=== PATIENT | female | born 1980 ===

== ENCOUNTER 2019-08-07 11:57 | Outpatient (REF) | payer OTHER, SELFPAY ==
[2019-08-08 16:57] LABS: COVID-19 RT-PCR Result Not Detected ((See Note))
== END 2019-08-07 12:17 ==
LOC: NCHCN 11:57
PROVIDERS: Visit Provider Family Medicine
DX: Z11.59 Encounter for screening for other viral diseases (principal)
CPT/HCPCS: U0003